=== PATIENT | male | born 1945 | race Caucasian/White ===

== ENCOUNTER 2017-04-04 11:05 | Day surgery (SDC) | payer OTHER, MEDICARE ==
[2017-03-20 13:30] VITALS: BMI 29.0
--- NOTE | 2017-03-20 14:00 | PAT Medication Instructions ---
Service Date Mar 20, 2017. Current Home Medication List Cetirizine (Zyrtec), 10 MG PO DAILY PRN for ALLERGIC REACTION Finasteride (Proscar), 5 MG PO QAM Medication Instructions For Your Scheduled Surgery - Hold the following medications the morning of surgery: Cetirizine (Zyrtec), 10 MG PO DAILY PRN for ALLERGIC REACTION Finasteride (Proscar), 5 MG PO QAM If you have any questions please call us at [phone] or [phone] or [phone]
[2017-03-20 14:25] LABS: BASO % 1.3 %; BASO ABS # 0.06 K/uL (0-0.2); COMPLETE YES; EOS % 2.4 %; IG% 0.2 %; LYMPH % 29.6 %; LYMPH ABS # 1.36 K/uL (1.2-3.4); MEAN CELL VOLUME 90.4 fL (80-100); MEAN CORPUSCULAR HEMOGLOBIN 31.3 pg (25-34); MEAN CORPUSCULAR HGB CONC 34.7 g/dl (32-36); MEAN PLATELET VOLUME 11.4 fL (7.4-10.4); MONO % 14.1 %; NEUT % 52.4 %; PLATELET COUNT 182 K/uL (130-400); RED BLOOD COUNT 4.98 M/uL (4.7-6.1)
[2017-03-20 14:30] LABS: URINE APPEARANCE CLEAR (CLEAR); URINE BILIRUBIN NEG (NEG); URINE COLOR DK YELLOW; URINE NITRITE NEG (NEG); URINE PH 5.5 (4.5-7.5); URINE SPECIFIC GRAVITY 1.027 (1.000-1.030); UROBILINOGEN NEG (NEG)
[2017-03-20 14:31] LABS: MANUAL MICROSCOPIC REQUIRED? NO; REVIEW REQ? YES
[2017-03-20 14:37] LABS: BUN/CREATININE RATIO 19.1 (10-20); CALCIUM 9.3 mg/dl (8.5-10.1); CREATININE 0.85 mg/dl (0.60-1.40); POTASSIUM 3.7 mmol/L (3.5-5.1)
--- NOTE | 2017-03-20 14:39 | DIAGNOSTIC IMAGING REPORT ---
CHEST PREADMISSION(PA/LAT) CLINICAL HISTORY: PAT preoperative evaluation COMPARISON STUDY: No previous studies for comparison. FINDINGS: Mild bibasilar atelectasis. Mid and upper lungs are considered clear. No evidence for cardiac enlargement. Tortuosity thoracic aorta. IMPRESSION: Mild bibasilar atelectasis. Otherwise negative study. The above report was generated using voice recognition software. It may contain grammatical, syntax or spelling errors. Electronically signed by: Jorge Bruno M.D. 03/20/2017 2:38 PM Dictated Date/Time: 03/20/2017 2:37 PM
[~2017-04-04] VITALS: Ht 185.4 cm; Wt 100.3 kg
[~2017-04-04 11:05] MED LIST: CETI10TA84 PO; CIPROFLOXACIN / D5W 400 MG IV SCH; FINA5TAB PO; LACTATED RINGER'S 1000ML 1,000 ML IV SCH
[2017-04-04 11:25] VITALS: BP 155/85; PULSE 76; TEMP 36.6; O2SAT 96; Ht 185.4 cm; Wt 100.3 kg
--- NOTE | 2017-04-04 11:45 | History & Physical Bridge Note ---
H&P Re-Evaluation Bridge Note: I have examined the patient, reviewed the History & Physical and in the interval since the performance of the History & Physical I have noted the following changes of clinical significance: No changes noted
[2017-04-04] MEDS ORDERED: FENTANYL CITRATE INJ 50 MCG/1 ML 2 ML VIAL IV PRN (12:15)
[2017-04-04] MEDS ORDERED: ONDANSETRON INJ 2 MG/ML 2 ML VIAL IV PRN (12:15)
[2017-04-04] MEDS ORDERED: ATROPINE SULFATE 0.1 MG/ML 5ML SYR IV PRN (12:15)
[2017-04-04] MEDS ORDERED: EpHEDrine SULFATE INJ 50 MG/ML AMP IV PRN (12:15)
[2017-04-04] MEDS ORDERED: FENTANYL CITRATE INJ 50 MCG/1 ML 2 ML VIAL ONE (12:52)
[2017-04-04] MEDS ORDERED: MIDAZOLAM HCL 1 MG/ML 2ML VIAL ONE (12:53)
[2017-04-04] MEDS ORDERED: OXYC7.5T65 PO (13:03)
[2017-04-04] MEDS ORDERED: CIPR-255 PO (13:03)
[2017-04-04] MEDS ORDERED: PHEN-775 PO (13:03)
--- NOTE | 2017-04-04 13:04 | Discharge Instructions ---
Discharge Instructions Date of Service Apr 04, 2017. Admission Reason for Admission: Benign Prostatic Hypertrophy Discharge Discharge Diagnosis / Problem: BPH and CAP s/p GLTURP Discharge Goals Goal(s): Improve function, Improve disease control, Therapeutic intervention Activity Recommendations Activity Limitations: as noted below Lifting Limitations: no more than 25 pounds, gradually increase as tolerated Exercise/Sports Limitations: rest today, gradually increase as tolerated May Resume Sexual Activity: after follow-up appointment Shower/Bathe: tomorrow (no tub bath with catheter in place) . Instructions / Follow-Up Instructions / Follow-Up As scheduled in office for removal of méndez and postoperative visit Discharge Diet Recommended Diet: Regular Diet (good fluid intake) Procedures Procedures Performed: Greenlight vaporization of prostate Pending Studies Studies pending at discharge: no Medical Emergencies . Who to Call and When: Medical Emergencies: If at any time you feel your situation is an emergency, please call 911 immediately. . Non-Emergent Contact Non-Emergency issues call your: Urologist Call Non-Emergent contact if: you have a fever, temperature is above 101, your pain is not controlled, your pain is worsening, your pain is unusual for you, your pain is concerning you, you have any medication questions . . "Provider Documentation" section prepared by Primitivo Perez. . VTE Core Measure Inpt VTE Proph given/why not?: SCD's [place] Drug Monitoring Program Search Results: patient reviewed within database, no issues identified
[2017-04-04] MEDS ORDERED: BELLADONNA/OPIUM SUPP 60 MG SUPP PR ONE ×2 (13:12→13:24)
[2017-04-04] MEDS ORDERED: PROPOFOL IV EMULSION 10 MG/ML 20 ML VIAL IV ONE (13:23)
[2017-04-04] MEDS ORDERED: LIDOCAINE HCL 2% 2 ML VIAL (20MG/ML) ONE (13:23)
[2017-04-04] MEDS ORDERED: EpHEDrine SULFATE 50MG/5ML SYR ONE (13:23)
[2017-04-04] MEDS ORDERED: ONDANSETRON INJ 2 MG/ML 2 ML VIAL ONE (13:23)
[2017-04-04] MEDS ORDERED: KETOROLAC TROMETHAMINE 30 MG/ML VIAL ONE (13:26)
--- NOTE | 2017-04-04 13:53 | [facility] Post Operative Brief Note ---
Immediate Operative Summary Operative Date Apr 04, 2017. Pre-Operative Diagnosis Benign prostatic hyperplasia; prostate cancer; LUTS Post-Operative Diagnosis Benign prostatic hyperplasia; prostate cancer; LUTS Procedure(s) Performed Greenlight vaporization of prostate Surgeon Dr. Natanael Perez Silk Soaker Surgeon(s) none Estimated Blood Loss 25 mL Findings Open fossa after completion with excellent hemostasis, 60K J used Specimens none per surgeon Drains 22 fr 10 cc H2O Anesthesia GALMA Complication(s) None Disposition Recovery Room / PACU
--- NOTE | 2017-04-04 13:58 | [facility] Operative Report ---
Operative Report Operative Date Apr 04, 2017. Pre-Operative Diagnosis Benign prostatic hyperplasia; prostate cancer; LUTS Post-Operative Diagnosis Benign prostatic hyperplasia; prostate cancer; LUTS Procedure(s) Performed Greenlight vaporization of prostate Surgeon Dr. Natanael Perez Thermoforming Operator Surgeon(s) none Estimated Blood Loss 25 mL Findings Open fossa after completion with excellent hemostasis, 60K J used Specimens none per surgeon Drains 22 fr 10 cc H2O Anesthesia GALMA Complication(s) None Disposition Recovery Room / PACU Indications 72-year-old male with a history of bothersome voiding symptoms, low- grade, low-volume prostate cancer being managed with active surveillance and a history of TURP and removal of bladder stone found to have re-obstructing tissue on office cystoscopy. He is here today for surgical management of this disease. Please see H&P for further details. Intravenous ciprofloxacin provided for antibiotic coverage and SCDs used for DVT prophylaxis. Description of Procedure Patient was properly identified and brought into the operative suite after identification of appropriate consent of the chart. General anesthesia with laryngeal mask was initiated and patient was prepped and draped in standard fashion for this procedure. Full timeout procedure was followed. SCDs were used for DVT prophylaxis. Greenlight laser resectoscope was introduced into the bladder under direct visualization using a visual obturator. This demonstrated an obstructed prostate gland at the level of the distal tissue and a [id number] bladder neck contractures appreciated within the office. Grade 2 trabeculation within the bladder was noted and ureteral orifices were well removed from the bladder neck. No intravesical stones, papillary lesions, masses or other significant abnormalities were appreciated. Using a side- firing greenlight laser fiber circumferential vaporization of the prostate gland and opening of the bladder neck was performed between 80 and 120 W. Relaxing incisions at the 5 and 7 o'clock position were performed to open the bladder neck and posterior bladder neck fibers were vaporized until flush with the trigone. Great care was taken to avoid any injury to the ureteral orifices which were noted to be intact at the end of the case. With care being taken to avoid any resection distal to the verumontanum the rigid apical tissue was also opened somewhat. After this was complete approximately 60,000 J of energy were used prosthetic fossa was noted to be visually unobstructed with a well opened bladder neck and excellent hemostasis. Bladder was partially distended and resectoscope was removed. 22 [place] catheter was placed with return of clear yellow irrigant. 10 mL of sterile water were placed in the balloon. Catheter was placed to gravity drainage and belladonna and opium suppository was provided for additional postoperative analgesia. Patient was transferred to the recovery room in stable condition. Follow-up care: Patient's provided with a prescription for ciprofloxacin, Percocet and Pyridium. Postoperative appointment for trial of void tomorrow and postoperative check are confirmed. Patient is instructed to contact our service should he note any fevers, chills, nausea, vomiting or other significant difficulties in the postoperative period. I attest to the content of the Intraoperative Record and any orders documented therein. Any exceptions are noted below.
[2017-04-04] MEDS ORDERED: OXYCODONE/ACETAMINOPHEN 5-325 TAB PO PRN (14:00)
[2017-04-04] MEDS ORDERED: PHENAZOPYRIDINE HCL 200 MG TAB PO PRN (14:00)
--- NOTE | 2017-04-04 14:32 | Anesthesiology Progress Note ---
Anesthesia Post Op Note Date & Time Apr 04, 2017 at 14:32 Vital Signs Pain Intensity: 0 Vital Signs Past 12 Hours Date Time Temp Pulse Resp B/P (MAP) Pulse Ox O2 Delivery O2 Flow Rate FiO2 04/04/17 14:25 36.8 59 16 150/82 99 Room Air 04/04/17 14:15 59 16 150/85 99 Room Air 04/04/17 14:05 64 16 138/82 100 Oxymask 10 04/04/17 13:55 64 16 133/85 100 Oxymask 10 04/04/17 13:45 36.4 64 16 139/83 100 Oxymask 10 04/04/17 11:25 36.6 76 18 155/85 (108) 96 Room Air Notes Mental Status: alert / awake / arousable, participated in evaluation Pt Amnestic to Procedure: Yes Nausea / Vomiting: adequately controlled Pain: adequately controlled Airway Patency, RR, SpO2: stable & adequate BP & HR: stable & adequate Hydration State: stable & adequate Anesthetic Complications: no major complications apparent
[2017-04-04 14:40] VITALS: BP 148/77; PULSE 51; TEMP 36.5; O2SAT 99
[2017-04-04 15:15] VITALS: BP 153/83; PULSE 64; TEMP 36.6; O2SAT 97
== END 2017-04-04 15:25 | disposition home or self-care (01) ==
LOC: C.ACU 11:05
PROVIDERS: ATTEND Urology
DX: N40.1 Benign prostatic hyperplasia with lower urinary tract symptoms (principal); C61 Malignant neoplasm of prostate; Z87.448 Personal history of other diseases of urinary system; R39.198 Other difficulties with micturition; Z85.038 Personal history of other malignant neoplasm of large intestine; Z87.891 Personal history of nicotine dependence; Z96.651 Presence of right artificial knee joint; Z83.3 Family history of diabetes mellitus; Z82.49 Family history of ischemic heart disease and other diseases of the circulatory system; Z68.29 Body mass index [BMI] 29.0-29.9, adult

== ENCOUNTER → 2018-01-22 | Outpatient (CLI) | payer OTHER, MEDICARE ==
[~2018-01-22] MED LIST changes: +CIPR-255 PO; -CIPROFLOXACIN / D5W 400 MG IV SCH; -LACTATED RINGER'S 1000ML 1,000 ML IV SCH
== END | disposition home or self-care (01) ==
LOC: C.PATHSPEC 17:41
PROVIDERS: ATTEND Urology
DX: C61 Malignant neoplasm of prostate (principal)